=== PATIENT | female | born 1965 | race Caucasian/White ===

== ENCOUNTER 2021-06-01 12:29 | Emergency (ER) | payer OTHER ==
[~2021-06-01] VITALS: Ht 157.5 cm; Wt 74.4 kg
[2021-06-01] MEDS ORDERED: COZAAR 25 MG TA25 M1 PO (12:39)
[2021-06-01] MEDS ORDERED: CRESTOR5 MG PO (12:40)
[2021-06-01 13:55] VITALS: BP 161/97
== END 2021-06-01 13:57 | disposition home or self-care (01) ==
LOC: M.ERS 12:29
DX: R20.0 Anesthesia of skin (principal); R20.2 Paresthesia of skin; Z71.1 Person with feared health complaint in whom no diagnosis is made; Z79.899 Other long term (current) drug therapy